=== PATIENT | female | born 1950 | race Caucasian/White ===

== ENCOUNTER 2017-09-09 08:32 | Day surgery (SDC) | payer MEDICARE ==
[~2017-09-09] VITALS: Ht 165.1 cm; Wt 61.4 kg
[~2017-09-09 08:32] MED LIST: BIO IDENTICAL HORMON; FLUO-1
[2017-09-09 08:48] VITALS: BP 110/72; PULSE 52; RESP 20; TEMP 97.8; O2SAT 99
[2017-09-09] MEDS ORDERED: prevagen (08:55)
[2017-09-09] MEDS ORDERED: SUCR1TAB PO (08:55)
[2017-09-09] MEDS ORDERED: OMEP20TA93 PO (08:55)
[2017-09-09] MEDS ORDERED: TIMO0.5S30 RIGHT EYE (08:55)
[2017-09-09] MEDS ORDERED: CALC0.5C PO (08:55)
[2017-09-09] MEDS ORDERED: SODIUM CHLOR 0.9% 1000 ML IV SCH (09:15)
[2017-09-09 09:33] LABS: AUTOMATED NEUTROPHIL # 2.3 TH/MM3 (1.8-7.7); BASOPHIL # 0.1 TH/MM3 (0-0.2); BASOPHIL % 1.4 % (0.0-2.0); EOSINOPHIL # 0.7 TH/MM3 (0-0.4); EOSINOPHIL % 13.7 % (0.0-4.0); HEMO FLAGS DIFF FINAL; LYMPH % 29.2 % (9.0-44.0); LYMPHOCYTE # 1.4 TH/MM3 (1.0-4.8); MEAN CELL VOLUME 94.9 FL (80.0-100.0); MEAN CORPUSCULAR HEMOGLOBIN 31.2 PG (27.0-34.0); MEAN CORPUSCULAR HGB CONC 32.9 % (32.0-36.0); MONO % 9.1 % (0.0-8.0); NEUT % 46.6 % (16.0-70.0); PLATELET COUNT 142 TH/MM3 (150-450); RED BLOOD COUNT 4.22 MIL/MM3 (4.00-5.30); RED CELL DISTRIBUTION WIDTH 13.5 % (11.6-17.2)
[2017-09-09] MEDS ORDERED: LIDOCAINE 1%/EPINEPHrine 1:100,000 SOLN 20 ML VIAL ONE (10:32)
[2017-09-09] MEDS ORDERED: MIDAZOLAM HCL 2 MG/2 ML VIAL ONE (11:14)
--- NOTE | 2017-09-09 11:47 | PD.RAD ---
Post CT Procedure Prog Note Pre Procedure Diagnosis: (1) Thrombocytopenia Post Procedure Diagnosis: (1) Thrombocytopenia Procedure Date: Sep 09, 2017 Supervising Radiologist: Kan Chawla JR Anesthesia: Conscious Sedation Plan of Activity Patient to Unit: [facility] Patient Condition: Good See PACS Report for procedural detail/treatment Biopsy Imaging Guidance: CT Side: Left Biopsy Procedure: Bone Marrow Specimen: Core Biopsy Findings: Successful BM biopsy and aspirate of left iliac bone. Jr. Denton,Kan Delgado MD Sep 09, 2017 11:46
[2017-09-09 12:00] VITALS: BP 106/52; PULSE 60; RESP 20; TEMP 97.6; O2SAT 100
[2017-09-09 12:15] VITALS: BP 93/58; PULSE 61; RESP 20; O2SAT 97
[2017-09-09 12:45] VITALS: BP 93/54; PULSE 64; RESP 18; O2SAT 97
[2017-09-09 13:27] LABS: BONE MARROW PROCESSING COMPLETE; IRON STAIN DONE; JENNER GIEMSA STAIN DONE
[2017-09-09 13:30] VITALS: BP 97/56; PULSE 65; RESP 18; O2SAT 97
[2017-09-09 14:00] VITALS: BP 94/58; PULSE 62; RESP 18; O2SAT 97
--- NOTE | 2017-09-09 14:37 | RADRPT ---
EXAM DATE/TIME: 09/09/2017 11:25 [place] COMPARISON: No previous studies available for comparison. INDICATIONS : Thrombocytopenia. SEDATION TIME: 30 minutes BIOPSY SITE: Left iliac MEDICATION(S): 1.) 1.5 mg Morphine IV 2.) 75 mcg fentanyl (Sublimaze) IV DEVICE(S): 1.) 11 gauge Bone marrow biopsy needle MEDICAL HISTORY : Anemia SURGICAL HISTORY : None. ENCOUNTER: Initial ACUITY: 1 day PAIN SCORE: 0/10 LOCATION: Left pelvis A total of one core specimen(s) were obtained and sent to the laboratory for pathologic evaluation. PROCEDURE: 1. CT guided pelvic biopsy. 2. Conscious sedation with continuous EKG and oximetry monitoring. Prior to the procedure informed consent was obtained. Any appropriate prior imaging studies were rev iewed. Using automated exposure control and adjustment of the mA and/or kV according to patient size , radiation dose was kept as low as reasonably achievable to obtain optimal diagnostic quality images . DICOM format image data is available electronically for review and comparison. The site was prepped in a sterile fashion. Full sterile technique was used, including cap, mask, ana rile gloves and gown and a large sterile sheet. Hand hygiene and 2% chlorhexidine and/or betadine/al cohol prep was utilized per protocol for cutaneous antisepsis. The skin and subcutaneous tissues wer e infiltrated with local anesthetic solution. With CT guidance the previously identified target was localized. Biopsy was performed using the presc ribed needle as above. Following biopsy marrow aspiration was performed with repeat puncture. Adequa te hemostasis was obtained with compression at the puncture site. Follow-up CT scan reveals no hemorrhage. Conscious sedation was performed with the prescribed dosages and duration as above in the presence of an independent trained radiology nurse to assist in the monitoring of the patient. EKG and oximetry remained stable throughout the procedure. The patient tolerated the procedure well and there were no complications. The patient was sent to Radiology Outpatient Unit in stable condition. CONCLUSION: 1. Uncomplicated CT guided bone marrow aspirate. 2. Uncomplicated CT guided bone marrow biopsy. Kan Chawla Jr., MD on September 09, 2017 at 14:34 Board Certified Radiologist. This report was verified electronically.
== END 2017-09-09 14:00 | disposition home or self-care (01) ==
LOC: HRAD 08:32 → HRIP 08:35 → HRAD 14:00
PROVIDERS: ATTEND Internal Medicine Hematology & Oncology
DX: D69.6 Thrombocytopenia, unspecified (principal); D64.9 Anemia, unspecified; E21.3 Hyperparathyroidism, unspecified; E05.90 Thyrotoxicosis, unspecified without thyrotoxic crisis or storm; K21.9 Gastro-esophageal reflux disease without esophagitis; K22.70 Barrett's esophagus without dysplasia; H40.9 Unspecified glaucoma; Z98.84 Bariatric surgery status
CPT/HCPCS: 38221; 77012; 85025; 85097; 88184; 88185; 88237; 88264; 88280; 88305; 88311; 88313; 99152; 99153; C1830; G0364; J2250; J3010; J7030